=== PATIENT | female | born 1965 | race Caucasian/White ===

== ENCOUNTER 2021-04-05 22:02 | Emergency (ER) | payer MEDICARE, OTHER ==
[2021-04-06] MEDS ORDERED: KEFLEX CAP 250250 MG PO (00:07)
== END 2021-04-06 00:30 | disposition home or self-care (01) ==
LOC: ER1 22:02
DX: S92.355A Nondisplaced fracture of fifth metatarsal bone, left foot, initial encounter for closed fracture (principal); S91.115A Laceration without foreign body of left lesser toe(s) without damage to nail, initial encounter; W26.8XXA Contact with other sharp object(s), not elsewhere classified, initial encounter; Y92.009 Unspecified place in unspecified non-institutional (private) residence as the place of occurrence of the external cause
CPT/HCPCS: 12001; 73630; 90471; 99283